=== PATIENT | female | born 1985 | race Caucasian/White ===

== ENCOUNTER 2018-09-18 19:04 | Emergency (ER) | payer BC ==
[2018-09-18 19:35] VITALS: BP 109/72
[2018-09-18 20:35] LABS: Influenza A Molecular POSITIVE (Negative)
--- NOTE | 2018-09-18 20:52 | UC ---
FLU HPI - HPI Summary HPI Summary: Unwell for the better part of 2 weeks, but with 2 day history of malaise, myalgias and cough. Has been exposed to Flu A; teaches elementary school and coaches gymnastics. - History of Current Complaint Chief Complaint: UCRespiratory Stated Complaint: BODYACHES,SORE THROAT Time Seen by Provider: 09/18/18 20:37 Hx Obtained From: Patient Hx Last Menstrual Period: 09/08/2018 Onset/Duration: Gradual Onset, Lasting Days Pain Intensity: 6 Associated Signs & Symptoms: Positive: Fever, Myalgia, Cough, Headache - Allergy/Home Medications Allergies/Adverse Reactions: Allergies Allergy/AdvReac Type Severity Reaction Status Date / Time No Known Allergies Allergy Verified 03/14/16 17:39 PMH/Surg Hx/FS Hx/Imm Hx Previously Healthy: Yes - Surgical History Surgical History: None - Family History Known Family History: Positive: Non-Contributory - Social History Occupation: Employed Full-time Lives: With Family Alcohol Use: Rare Substance Use Type: None Smoking Status (MU): Never Smoked Tobacco Review of Systems All Other Systems Reviewed And Are Negative: Yes Constitutional: Positive: Fever, Fatigue Skin: Positive: Negative Eyes: Positive: Negative ENT: Positive: Negative Respiratory: Positive: Shortness Of Breath, Cough Cardiovascular: Positive: Negative Gastrointestinal: Negative: Vomiting, Diarrhea, Nausea Genitourinary: Positive: Negative Motor: Positive: Negative Neurovascular: Positive: Negative Musculoskeletal: Positive: Myalgia Neurological: Positive: Negative Psychological: Positive: Negative Is Patient Immunocompromised?: No Physical Exam Triage Information Reviewed: Yes Appearance: No Pain Distress, Ill-Appearing Vital Signs: Initial Vital Signs Temp 101.3 F 09/18/18 19:29 Pulse 115 09/18/18 19:29 Resp 16 09/18/18 19:29 BP 109/72 09/18/18 19:29 Pulse Ox 100 09/18/18 19:29 Eyes: Positive: Conjunctiva Clear ENT: Positive: Pharynx normal, TMs normal Neck: Positive: Supple, Nontender, No Lymphadenopathy Respiratory: Positive: Lungs clear, Normal breath sounds Cardiovascular: Positive: RRR, No Murmur Musculoskeletal Exam: Normal Musculoskeletal: Positive: Strength Intact, ROM Intact Neurological: Positive: Alert, Muscle Tone Normal Psychological Exam: Normal Skin Exam: Normal Diagnostics - Laboratory Diagnostic Studies Completed/Ordered: Flu A positive Flu Course/Dx - Course Course Of Treatment: tamiflu, rest at home, ibuprofen, fluids - Differential Dx/Diagnosis Differential Diagnosis/HQI/PQRI: Influenza, Upper Respiratory Infection Provider Diagnosis: Influenza A Discharge - Sign-Out/Discharge Documenting (check all that apply): Patient Departure All imaging exams completed and their final reports reviewed: No Studies - Discharge Plan Condition: Stable Disposition: HOME Prescriptions: Oseltamivir CAP* [Tamiflu CAP*] 75 mg PO BID #9 cap Patient Education Materials: Influenza (ED) Forms: *Work Release Referrals: Loretta Black NP [Primary Care Provider] - Additional Instructions: As reviewed, you will take Tamiflu with the anticipation of decreased duration of flu symptoms. Use ibuprofen as needed for fever, high intake of fluids, and follow up if you develop worsening shortness of breath or symptoms of persistent illness. - Billing Disposition and Condition Condition: STABLE Disposition: Home
[2018-09-18] MEDS ORDERED: Oseltamivir CAP* 75 MG CAP PO ONE (20:54)
== END 2018-09-18 21:08 | disposition home or self-care (01) ==
LOC: UCEAST 19:04
DX: J10.1 Influenza due to other identified influenza virus with other respiratory manifestations (principal)
CPT/HCPCS: 99212; A9270-GY; G0463